=== PATIENT | female | born 1960 | race Two or more races ===

== ENCOUNTER 2025-05-29 15:54 | Outpatient (CLI) | payer OTHER | END 2025-05-29 15:57 | disposition home or self-care (01) | LOC: RAD 15:54 | DX: J44.9 Chronic obstructive pulmonary disease, unspecified (principal) ==

== ENCOUNTER 2025-06-06 12:03 | Outpatient (CLI) | payer OTHER | END 2025-06-06 12:04 | disposition home or self-care (01) | LOC: LAB 12:03 → EKG 12:03 → LAB 12:04 | PROVIDERS: ATTEND Ophthalmology | DX: I10 Essential (primary) hypertension (principal) ==